=== PATIENT | female | born 1955 | race Two or more races ===

== ENCOUNTER 2016-12-27 09:03 | Emergency (ER) | payer OTHER ==
--- NOTE | 2016-12-27 09:29 | UCPHY ---
H & P Patient Type: Established Time Seen by Provider: 12/27/16 09:24 HPI/ROS: CHIEF COMPLAINT: Forehead laceration HISTORY OF PRESENT ILLNESS: The patient is a healthy 61-year-old female who was jogging this morning and tripped over the sidewalk. She scraped her forehead on the sidewalk. She denies loss of consciousness. She denies headache or neck pain. She denies other injuries other than mild pain to her left knee that she is not concerned about. She has been ambulatory. No vision abnormalities. No dental injury. REVIEW OF SYSTEMS: Constitutional: denies: chills, fever, recent illness, recent injury EENTM: denies: blurred vision, double vision, nose congestion Respiratory: denies: cough, shortness of breath Cardiac: denies: chest pain, irregular heart rate, lightheadedness, palpitations Gastrointestinal/Abdominal: denies: abdominal pain, diarrhea, nausea, vomiting, blood streaked stools Genitourinary: denies: dysuria, frequency, hematuria, pain Musculoskeletal: denies: joint pain, muscle pain Skin: See HPI Neurological: denies: headache, numbness, paresthesia, tingling, dizziness, weakness Hematologic/Lymphatic: denies: blood clots, easy bleeding, easy bruising Immunologic/allergic: denies: HIV/AIDS, transplant EXAM: GENERAL: Well-appearing, well-nourished and in no acute distress. HEAD: Hematoma left forehead and abrasions, normocephalic. EYES: Pupils equal round and reactive to light, extraocular movements intact, sclera anicteric, conjunctiva are normal. ENT: TMs normal, nares patent, oropharynx clear without exudates. Moist mucous membranes. NECK: Normal range of motion, supple without lymphadenopathy or JVD. LUNGS: Breath sounds clear to auscultation bilaterally and equal. No wheezes rales or rhonchi. HEART: Regular rate and rhythm without murmurs, rubs or gallops. ABDOMEN: Soft, nontender, normoactive bowel sounds. No guarding, no rebound. No masses appreciated. BACK: No CVA tenderness, no spinal tenderness, step-offs or deformities EXTREMITIES: Normal range of motion, no pitting or edema. No clubbing or cyanosis. NEUROLOGICAL: Cranial nerves II through XII grossly intact. Normal speech, normal gait. 5/5 strength, normal movement in all extremities, normal sensation PSYCH: Normal mood, normal affect. SKIN: Abrasion to forehead and a 2 cm laceration to left eyebrow. Mild hematoma to left forehead. Source: Patient Exam Limitations: No limitations - Personal History Current Tetanus/Diphtheria Vaccine: Yes - Medical/Surgical History Hx Asthma: No Hx Chronic Respiratory Disease: No Hx Diabetes: No Hx Cardiac Disease: No Hx Renal Disease: No Hx Cirrhosis: No Hx Alcoholism: No Other PMH: good health - Family History Significant Family History: No pertinent family hx - Social History Smoking Status: Never smoked Alcohol Use: Sober Drug Use: None Constitutional: Initial Vital Signs Temperature (C) 36.3 C 12/27/16 09:15 Heart Rate 59 L 12/27/16 09:15 Respiratory Rate 18 12/27/16 09:15 Blood Pressure 125/73 H 12/27/16 09:15 O2 Sat (%) 93 12/27/16 09:15 O2 Delivery Mode Room Air Allergies/Adverse Reactions: bandaids Allergy (Uncoded 12/27/16 09:27) Home Medications: Medication Instructions Recorded NK [No Known Home Meds] 08/08/15 Medical Decision Making Procedures: Procedure: Laceration repair. Verbal consent was obtained from the patient. The 2 cm left forehead laceration was not anesthetized. The wound was irrigated copiously according to protocol, draped and explored to its base. It was approximately 2 mm deep. There were no deep structures involved. No tendon, nerve, or vascular injury was identified when explored through full range of motion. No foreign body was identified. The wound was repaired with Dermabond. The wound repair was simple without wound margin revisement or multiple flap alignment. The procedure was performed by myself. A dressing was then placed with sterile gauze. ED Course/Re-evaluation: The patient tolerated the procedure well. We discussed care of Dermabond and follow-up. She is happy with this and declines further workup or testing. I do not suspect concussion or internal head injury or cervical spine injury. Differential Diagnosis: Partial list of the Differential diagnosis considered include but were not limited to; abrasion, laceration, contusion and although unlikely based on the history and physical exam, I also considered intracranial injury, cervical spine injury, eye injury. I discussed these differential diagnoses and the plan with the patient as well as the usual and expected course. The patient understands that the diagnosis is provisional and that in medicine we are not always correct and that further workup is often warranted. Usual and customary warnings were given. All of the patient's questions were answered. The patient was instructed to return to the emergency department should the symptoms at all worsen or return, otherwise to followup with the physician as we discussed. - Data Points Medications Given: Discontinued Medications Octyl Cyanoacrylate (Dermabond) 1 each TP EDNOW ONE Stop: 12/27/16 09:34 Last Admin: 12/27/16 09:35 Dose: 1 each Departure - Departure Disposition: Home, Routine, Self-Care Clinical Impression: Abrasion Forehead laceration Qualifiers: Encounter type: initial encounter Qualified Code(s): S01.81XA - Laceration without foreign body of other part of head, initial encounter Contusion Qualifiers: Encounter type: initial encounter Contusion area: head Contusion of head detail : scalp Qualified Code(s): S00.03XA - Contusion of scalp, initial encounter Condition: Fair Instructions: Skin Adhesive Care (ED) Referrals: NONE *PRIMARY CARE P,. [Primary Care Provider] - As per Instructions Razia Palmer MD [Medical Doctor] - As per Instructions - PQRS PQRS Measurement: 134: Depression screening and followup, PRIME MD-PHQ2 (12 years and older) Over the last 2 weeks, how often have you been bothered by any of the following problems? 1. Feeling down, depressed, or hopeless? 2. Little interest or pleasure in doing things? Patient answered no to both 1 and 2 130: Documentation of medications. Reviewed all patient medications, doses, route and frequency. 226: Do you smoke? No. 47: 65 and older: Advanced care planning. Patient designates surrogate decision maker as spouse . Patient has advanced directive. 51: 18 years old and older with diagnosis of COPD, spirometry performance. Spirometry not performed; equipment not available. 52: 18 years old and older with COPD and symptoms of COPD or FEV1<60% predicted prescribed a B Agonist. Not applicable
[2016-12-27 09:31] VITALS: BP 125/73; PULSE 59; RESP 18; TEMP 97.3; O2SAT 93
[2016-12-27] MEDS ORDERED: SKIN ADHESIVE (DERMABOND) 1 EACH TP ONE (09:33)
== END 2016-12-27 09:53 | disposition home or self-care (01) ==
LOC: CED 09:03
PROC: 0HQ1XZZ Repair Face Skin, External Approach (ICD-10-PCS; principal; 2016-12-27)
DX: S01.81XA Laceration without foreign body of other part of head, initial encounter (principal); S00.03XA Contusion of scalp, initial encounter; W01.0XXA Fall on same level from slipping, tripping and stumbling without subsequent striking against object, initial encounter; Y93.02 Activity, running; Y99.8 Other external cause status; Y92.480 Sidewalk as the place of occurrence of the external cause
CPT/HCPCS: 12011-PO; 99213-PO; G0463-PO

== ENCOUNTER → 2019-01-16 | Outpatient (CLI) | payer OTHER | LOC: CIMAGING 15:17 | PROVIDERS: ATTEND Family Medicine | DX: M54.9 Dorsalgia, unspecified (principal); R94.4 Abnormal results of kidney function studies | CPT/HCPCS: 76770-PO ==

== ENCOUNTER → 2019-01-27 | Outpatient (CLI) | payer OTHER | LOC: CIMAGING 12:51 ==